=== PATIENT | male | born 1965 ===

== ENCOUNTER 2024-08-27 06:55 | Day surgery (SDC) | payer OTHER ==
[2024-08-20 08:22] LABS: URINE APPEARANCE Clear; URINE BILIRRUBIN Negative (NEGATIVE); URINE BLOOD Negative; URINE COLOR Yellow; URINE GLUCOSE Negative (NEGATIVE); URINE KETONE Negative (NEGATIVE); URINE LEUKOCYTE Negative; URINE NITRATE Negative; URINE PROTEIN Negative (NEGATIVE); URINE UROBILINOGEN 0.2 E.U./dl
[2024-08-20 08:25] LABS: URINE BACTERIA 18.3 uL (0.0-1933); URINE EPITHELIAL CELLS 1.4 uL (0.0-38.8)
[2024-08-20 08:35] LABS: INR 1.03; PARTIAL THROMBOPLASTIN TIME 27.6 SECONDS (22.0-34.0); PROTHROMBIN TIME 11.2 SECONDS (9.0-11.5)
[2024-08-20 08:42] LABS: BASO % 0.8 % (0.1-1.2); EOS # 0.14 (0.04-0.54); EOS % 2.7 % (0.7-7.0); HEMATOCRIT 36.9 % (40.1-51.0); LYMPH # 1.05 (1.18-3.74); MEAN CORPUSCULAR HEMOGLOBIN 30.2 pg (25.6-32.2); MONO % 9.5 % (4.7-12.5); NEUT # 3.49 (1.56-6.13); NEUT % 66.4 % (34.0-71.1); RED CELL DISTRIBUTION WIDTH 13.3 % (11.6-14.4)
[2024-08-20 09:16] LABS: ALBUMIN 4.1 gm/dL (3.4-5.0); BILIRUBIN TOTAL 0.91 mg/dL (0.3-1.2); CALCIUM 9.2 mg/dL (8.5-10.1); CREATININE SERUM 1.43 mg/dL (0.70-1.30); GFR 51.16; POTASSIUM 3.95 mEq/L (3.5-5.1); TOTAL PROTEIN 7.1 gm/dL (6.4-8.2)
[2024-08-20 09:23] LABS: PLATELET COUNT 127 K/uL (163-369)
[2024-08-20 09:42] LABS: URINE CAST 0.14 uL (0.0-1.40); URINE RBC 0.1 uL (0.0-20.8); URINE WBC 1.1 uL (0.0-23.2)
[~2024-08-27] VITALS: Ht 167.6 cm; Wt 75.3 kg
[~2024-08-27 06:55] MED LIST: CRESTOR; ELIQUIS5 MG; IRBESARTAN300 MG; TOPROL XL25 M1
[2024-08-27] MEDS ORDERED: DEXAMETHASONE SODIUM PHOSPHATE 4 MG/ML VIAL IV ONE (15:15)
[2024-08-27] MEDS ORDERED: CEFAZOLIN SODIUM 1,000 MG VIAL IV ONE (15:15)
[2024-08-27] MEDS ORDERED: MORPHINE SULFATE 4 MG/ML VIAL IV ONE (16:25)
== END 2024-08-27 18:15 | disposition home or self-care (01) ==
LOC: CIR.AMB 06:55 → SURH 07:45 → EDSTATUS 07:45 → CIR.AMB 18:15
PROVIDERS: ATTEND Surgery
DX: C73 Malignant neoplasm of thyroid gland (principal)